=== PATIENT | female | born 1970 | race African-American/Black ===

== ENCOUNTER 2022-08-18 17:45 | Emergency (ER) | payer OTHER ==
[2022-08-18] MEDS ORDERED: HYDROmorphone 1 MG/ML Syringe IM ONE (17:49)
[2022-08-18] MEDS ORDERED: HYDROmorphone 0.5 MG/0.5 ML Syringe IVPUSH ONE ×2 (18:01→19:26)
[2022-08-18] MEDS ORDERED: Ondansetron 4 MG/2 ML SDV IVPUSH ONE (18:01)
[2022-08-18] MEDS ORDERED: Lidocaine 1% 5 ML VIAL INJECT ONE ×2 (18:01→19:33)
[2022-08-18] MEDS ORDERED: Sodium Chloride 0.9% 10 ML Syringe FLUSH PRN (18:01)
[2022-08-18] MEDS ORDERED: Bacitracin Oint 1 GM U/D Packet TOP ONE (18:01)
[2022-08-18] MEDS ORDERED: Diphtheria,Pertussis(Acell),Tetanus Vaccine 0.5 ML Syringe IM ONE (20:09)
[2022-08-18] MEDS ORDERED: ceFAZolin 1 GM Vial IM ONE (20:12)
[2022-08-18] MEDS ORDERED: ceFAZolin 1 GM in Sodium Chloride 0.9% 50 ML IV ONE (20:25)
[2022-08-18] MEDS ORDERED: Acetaminophen/HYDROcodone 325-5 MG Tab PO ONE (20:36)
== END 2022-08-18 22:04 | disposition home or self-care (01) ==
LOC: JP.ED 17:45
DX: S62.639B Displaced fracture of distal phalanx of unspecified finger, initial encounter for open fracture (principal); S61.411A Laceration without foreign body of right hand, initial encounter; Z23 Encounter for immunization; V89.2XXA Person injured in unspecified motor-vehicle accident, traffic, initial encounter; Y92.410 Unspecified street and highway as the place of occurrence of the external cause
CPT/HCPCS: 12002; 73130; 90471; 90715; 96365; 96372; 96375; 96376; 99284; A9270; J0690; J1170; J2405; J3490